=== PATIENT | female | born 1970 | race African-American/Black ===

== ENCOUNTER 2024-06-28 23:27 | Emergency (ER) | payer OTHER ==
[~2024-06-28] VITALS: Ht 172.7 cm; Wt 83.6 kg
[2024-06-28 23:35] VITALS: BP 137/88; PULSE 106; RESP 20; TEMP 98.5; O2SAT 100
[2024-06-29] MEDS ORDERED: CEPH-558 PO (02:24)
[2024-06-29] MEDS ORDERED: SULF-261 PO (02:24)
== END 2024-06-29 02:40 | disposition home or self-care (01) ==
LOC: EMS 23:27
DX: L03.119 Cellulitis of unspecified part of limb (principal); L03.317 Cellulitis of buttock; Z98.890 Other specified postprocedural states
CPT/HCPCS: 99283; Z7502